=== PATIENT | male | born 1945 | race African-American/Black ===

== ENCOUNTER 2016-07-10 12:17 | Emergency (ER) | payer MEDICARE, OTHER ==
[~2016-07-10] VITALS: Ht 180.3 cm; Wt 95.0 kg
[~2016-07-10 12:17] MED LIST: AMLO5TAB4 PO; PREG50CA PO; TAMS0.4C31 PO; iron PO
[2016-07-10 12:19] VITALS: BP 144/83
[2016-07-10] MEDS ORDERED: NAPROXEN 500MG TABLET PO ONE (14:30)
== END 2016-07-10 15:20 | disposition home or self-care (01) ==
LOC: ER 13:01
DX: G89.29 Other chronic pain (principal); M25.511 Pain in right shoulder; I10 Essential (primary) hypertension; Z86.73 Personal history of transient ischemic attack (TIA), and cerebral infarction without residual deficits; Z88.0 Allergy status to penicillin
CPT/HCPCS: 99283

== ENCOUNTER 2016-09-06 18:47 | Emergency (ER) | payer MEDICARE, OTHER ==
[~2016-09-06] VITALS: Ht 172.7 cm; Wt 73.0 kg
[2016-09-06] MEDS ORDERED: SODIUM CHLORIDE 0.9% 1,000 ML IV ONE (19:40)
[2016-09-06 20:12] LABS: BASOPHILS % 1.1 % (0.0-2.0); EOSINOPHILS % 3.4 % (0.0-5.0); HEMATOCRIT. 37.2 % (42.0-52.0); HEMOGLOBIN. 12.2 g/dL (14.0-18.0); LYMPHOCYTES % 17.2 % (20.0-50.0); MEAN CORPUSCULAR HEMOGLOBIN 25.9 pg (28.0-32.0); MEAN CORPUSCULAR VOLUME 78.8 fL (80.0-94.0); MEAN PLATELET VOLUME 8.4 fl (7.4-10.4); MONOCYTES % 8.7 % (2.0-8.0); NEUTROPHILS % 69.6 % (40.0-76.0); PLATELET 193 x1000/uL (130-400); RED BLOOD CELL COUNT 4.72 mill/uL (4.7-6.1); RED CELL DISTRIBUTION WIDTH 16.4 % (11.6-14.6)
[2016-09-06 20:20] LABS: AMMONIA 15 uMol/L (<32)
[2016-09-06 20:26] LABS: CARBON DIOXIDE 24 mEq/L (21-32); CHLORIDE 102 mEq/L (98-107); ETHANOL BLOOD < 10 mg/dL; TROPONIN I < 0.02 ng/mL (0.00-0.04)
[2016-09-06 20:43] LABS: CLARITY URINE CLEAR (CLEAR); COLOR URINE YELLOW (YELLOW); GLUCOSE URINE NEGATIVE (NEGATIVE); KETONES URINE NEGATIVE (NEGATIVE); LEUKOCYTE ESTERASE URINE NEGATIVE (NEGATIVE); NITRITE URINE NEGATIVE (NEGATIVE); OCCULT BLOOD URINE TRACE (NEGATIVE); PH URINE 5.5 (4.5-8.0); PROTEIN URINE 1+ (NEGATIVE); UROBILINOGEN URINE 0.2 E.U./dL (0.2-1.0)
[2016-09-06 20:53] LABS: *AMPHETAMINES SCREEN URINE NEGATIVE (NEGATIVE); *BARBITURATES SCREEN URINE NEGATIVE (NEGATIVE); *BENZODIAZEPINES SCREEN URINE NEGATIVE (NEGATIVE); *COCAINE SCREEN URINE NEGATIVE (NEGATIVE); CANNABINOID URINE SCREEN NEGATIVE (NEGATIVE); METHADONE URINE SCREEN NEGATIVE (NEGATIVE); OPIATES URINE SCREEN NEGATIVE (NEGATIVE); PHENCYCLIDINE URINE SCREEN PRESUMTIVE POSITIVE (NEGATIVE)
[2016-09-06 22:10] VITALS: BP 156/85
== END 2016-09-06 23:00 | disposition home or self-care (01) ==
LOC: ER 19:05
DX: R55 Syncope and collapse (principal); F19.10 Other psychoactive substance abuse, uncomplicated; F17.200 Nicotine dependence, unspecified, uncomplicated; I10 Essential (primary) hypertension; Z86.73 Personal history of transient ischemic attack (TIA), and cerebral infarction without residual deficits; Z88.0 Allergy status to penicillin
CPT/HCPCS: 36415; 70450; 71010; 72125; 80053; 80305; 81001; 82140; 82962; 84484; 85025; 93005; 96360; 99285; 99406; G0482; J7030

== ENCOUNTER 2016-09-12 18:27 | Emergency (ER) | payer MEDICARE, OTHER ==
[~2016-09-12] VITALS: Ht 180.3 cm; Wt 81.0 kg
[2016-09-12 18:30] VITALS: BP 160/89
== END 2016-09-12 22:50 | disposition left against medical advice (07) ==
LOC: ER 19:04
DX: Z53.21 Procedure and treatment not carried out due to patient leaving prior to being seen by health care provider (principal)

== ENCOUNTER 2016-09-28 22:48 | Emergency (ER) | payer MEDICARE, OTHER ==
[~2016-09-28] VITALS: Ht 185.4 cm; Wt 90.0 kg
[2016-09-29 00:18] LABS: EOSINOPHILS % 4.2 % (0.0-5.0); HEMATOCRIT. 38.2 % (42.0-52.0); HEMOGLOBIN. 12.2 g/dL (14.0-18.0); LYMPHOCYTES % 29.7 % (20.0-50.0); MEAN CORPUSCULAR VOLUME 81.5 fL (80.0-94.0); MEAN PLATELET VOLUME 7.6 fl (7.4-10.4); MONOCYTES % 7.8 % (2.0-8.0); NEUTROPHILS % 57.3 % (40.0-76.0); PLATELET 248 x1000/uL (130-400); RED BLOOD CELL COUNT 4.68 mill/uL (4.7-6.1); RED CELL DISTRIBUTION WIDTH 15.9 % (11.6-14.6)
[2016-09-29 00:20] LABS: CLARITY URINE CLEAR (CLEAR); COLOR URINE YELLOW (YELLOW); GLUCOSE URINE NEGATIVE (NEGATIVE); KETONES URINE NEGATIVE (NEGATIVE); LEUKOCYTE ESTERASE URINE NEGATIVE (NEGATIVE); NITRITE URINE NEGATIVE (NEGATIVE); OCCULT BLOOD URINE NEGATIVE (NEGATIVE); PH URINE 5.5 (4.5-8.0); PROTEIN URINE TRACE (NEGATIVE); SPECIFIC GRAVITY URINE 1.026 (1.005-1.030)
[2016-09-29 00:32] LABS: CARBON DIOXIDE 28 mEq/L (21-32); CHLORIDE 108 mEq/L (98-107); CREATINE KINASE 161 IU/L (39-308); ETHANOL BLOOD < 10 mg/dL
[2016-09-29 00:33] LABS: PROTHROMBIN TIME 10.7 sec
[2016-09-29 00:34] LABS: *AMPHETAMINES SCREEN URINE NEGATIVE (NEGATIVE); *BARBITURATES SCREEN URINE NEGATIVE (NEGATIVE); *BENZODIAZEPINES SCREEN URINE NEGATIVE (NEGATIVE); *COCAINE SCREEN URINE NEGATIVE (NEGATIVE); CANNABINOID URINE SCREEN NEGATIVE (NEGATIVE); METHADONE URINE SCREEN NEGATIVE (NEGATIVE); OPIATES URINE SCREEN NEGATIVE (NEGATIVE); PHENCYCLIDINE URINE SCREEN PRESUMTIVE POSITIVE (NEGATIVE)
[2016-09-29 11:45] VITALS: BP 124/89
== END 2016-09-29 12:13 | disposition home or self-care (01) ==
LOC: ER 22:57
DX: R42 Dizziness and giddiness (principal); R53.1 Weakness; F16.10 Hallucinogen abuse, uncomplicated; I11.9 Hypertensive heart disease without heart failure; F17.200 Nicotine dependence, unspecified, uncomplicated; Z88.0 Allergy status to penicillin; Z86.73 Personal history of transient ischemic attack (TIA), and cerebral infarction without residual deficits
CPT/HCPCS: 36415; 70450; 80053; 80305; 81001; 82550; 82962; 85025; 85610; 99285; G0482

== ENCOUNTER 2016-10-01 10:13 | Emergency (ER) | payer MEDICARE, OTHER ==
[~2016-10-01] VITALS: Ht 185.4 cm; Wt 81.0 kg
[2016-10-01 11:52] LABS: BASOPHILS % 0.9 % (0.0-2.0); EOSINOPHILS % 4.4 % (0.0-5.0); HEMATOCRIT. 38.3 % (42.0-52.0); HEMOGLOBIN. 12.4 g/dL (14.0-18.0); LYMPHOCYTES % 28.2 % (20.0-50.0); MEAN CORPUSCULAR HEMOGLOBIN 26.1 pg (28.0-32.0); MEAN CORPUSCULAR VOLUME 80.9 fL (80.0-94.0); MEAN PLATELET VOLUME 8.1 fl (7.4-10.4); MONOCYTES % 8.6 % (2.0-8.0); NEUTROPHILS % 57.9 % (40.0-76.0); PLATELET 254 x1000/uL (130-400); RED BLOOD CELL COUNT 4.74 mill/uL (4.7-6.1); RED CELL DISTRIBUTION WIDTH 15.8 % (11.6-14.6)
[2016-10-01 12:05] LABS: CARBON DIOXIDE 27 mEq/L (21-32); CHLORIDE 106 mEq/L (98-107); ETHANOL BLOOD < 10 mg/dL
[2016-10-01 12:13] LABS: *AMPHETAMINES SCREEN URINE NEGATIVE (NEGATIVE); *BARBITURATES SCREEN URINE NEGATIVE (NEGATIVE); *BENZODIAZEPINES SCREEN URINE NEGATIVE (NEGATIVE); *COCAINE SCREEN URINE NEGATIVE (NEGATIVE); CANNABINOID URINE SCREEN NEGATIVE (NEGATIVE); METHADONE URINE SCREEN NEGATIVE (NEGATIVE); OPIATES URINE SCREEN NEGATIVE (NEGATIVE); PHENCYCLIDINE URINE SCREEN PRESUMTIVE POSITIVE (NEGATIVE)
[2016-10-01 15:27] VITALS: BP 128/74
== END 2016-10-01 15:57 | disposition home or self-care (01) ==
LOC: ER 10:14
DX: F16.10 Hallucinogen abuse, uncomplicated (principal); I12.9 Hypertensive chronic kidney disease with stage 1 through stage 4 chronic kidney disease, or unspecified chronic kidney disease; N18.9 Chronic kidney disease, unspecified; D63.1 Anemia in chronic kidney disease; I25.10 Atherosclerotic heart disease of native coronary artery without angina pectoris; F17.210 Nicotine dependence, cigarettes, uncomplicated; Z88.0 Allergy status to penicillin; Z86.73 Personal history of transient ischemic attack (TIA), and cerebral infarction without residual deficits
CPT/HCPCS: 36415; 80048; 80305; 85025; 99284; G0482

== ENCOUNTER 2016-10-10 12:34 | Emergency (ER) | payer MEDICARE, OTHER ==
[~2016-10-10] VITALS: Ht 175.3 cm; Wt 75.0 kg
[2016-10-10] MEDS ORDERED: IBUPROFEN 600MG TABLET PO ONE (14:15)
[2016-10-10] MEDS ORDERED: TETANUS, DIPHTHERIA, PERTUSSIS VAC/PF 0.5ML (>7YR OLD) IM ONE (14:15)
[2016-10-10 19:40] VITALS: BP 150/90
== END 2016-10-10 20:38 | disposition home or self-care (01) ==
LOC: ER 13:07
DX: S09.8XXA Other specified injuries of head, initial encounter (principal); T50.901A Poisoning by unspecified drugs, medicaments and biological substances, accidental (unintentional), initial encounter; F19.10 Other psychoactive substance abuse, uncomplicated; E11.9 Type 2 diabetes mellitus without complications; I10 Essential (primary) hypertension; W18.39XA Other fall on same level, initial encounter; Y93.89 Activity, other specified; Y92.89 Other specified places as the place of occurrence of the external cause; Y99.8 Other external cause status; Z88.0 Allergy status to penicillin
CPT/HCPCS: 70450; 90471; 90715; 99284

== ENCOUNTER 2016-10-20 09:23 | Emergency (ER) | payer MEDICARE, OTHER ==
[~2016-10-20] VITALS: Ht 180.3 cm; Wt 90.0 kg
[2016-10-20] MEDS ORDERED: ACETAMINOPHEN 325MG TABLET PO ONE (10:00)
[2016-10-20 10:14] LABS: EOSINOPHILS % 7.9 % (0.0-5.0); HEMATOCRIT. 36.3 % (42.0-52.0); HEMOGLOBIN. 11.7 g/dL (14.0-18.0); LYMPHOCYTES % 27.8 % (20.0-50.0); MEAN CORPUSCULAR HEMOGLOBIN 26.2 pg (28.0-32.0); MEAN CORPUSCULAR VOLUME 81.5 fL (80.0-94.0); NEUTROPHILS % 55.3 % (40.0-76.0); PLATELET 207 x1000/uL (130-400); RED BLOOD CELL COUNT 4.45 mill/uL (4.7-6.1); RED CELL DISTRIBUTION WIDTH 15.3 % (11.6-14.6)
[2016-10-20 10:22] LABS: CLARITY URINE CLEAR (CLEAR); COLOR URINE YELLOW (YELLOW); GLUCOSE URINE NEGATIVE (NEGATIVE); KETONES URINE NEGATIVE (NEGATIVE); LEUKOCYTE ESTERASE URINE 1+ (NEGATIVE); NITRITE URINE NEGATIVE (NEGATIVE); OCCULT BLOOD URINE NEGATIVE (NEGATIVE); PROTEIN URINE NEGATIVE (NEGATIVE); SPECIFIC GRAVITY URINE 1.014 (1.005-1.030); UROBILINOGEN URINE 0.2 E.U./dL (0.2-1.0)
[2016-10-20 10:23] LABS: CARBON DIOXIDE 26 mEq/L (21-32); CHLORIDE 107 mEq/L (98-107)
[2016-10-20 10:44] LABS: *AMPHETAMINES SCREEN URINE NEGATIVE (NEGATIVE); *BARBITURATES SCREEN URINE NEGATIVE (NEGATIVE); *BENZODIAZEPINES SCREEN URINE NEGATIVE (NEGATIVE); *COCAINE SCREEN URINE NEGATIVE (NEGATIVE); CANNABINOID URINE SCREEN NEGATIVE (NEGATIVE); METHADONE URINE SCREEN NEGATIVE (NEGATIVE); OPIATES URINE SCREEN NEGATIVE (NEGATIVE); PHENCYCLIDINE URINE SCREEN PRESUMTIVE POSITIVE (NEGATIVE)
[2016-10-20 11:06] VITALS: BP 137/83
== END 2016-10-20 11:17 | disposition home or self-care (01) ==
LOC: ER 09:33
DX: R51 Headache (principal); F19.10 Other psychoactive substance abuse, uncomplicated; I10 Essential (primary) hypertension; Z86.73 Personal history of transient ischemic attack (TIA), and cerebral infarction without residual deficits; Z88.0 Allergy status to penicillin; W01.0XXA Fall on same level from slipping, tripping and stumbling without subsequent striking against object, initial encounter; Y93.89 Activity, other specified; Y99.8 Other external cause status; Y92.89 Other specified places as the place of occurrence of the external cause
CPT/HCPCS: 36415; 80048; 80305; 81001; 85025; 93005; 99285

== ENCOUNTER 2016-10-22 02:42 | Emergency (ER) | payer MEDICARE, OTHER ==
[~2016-10-22] VITALS: Ht 190.5 cm; Wt 75.0 kg
[2016-10-22 02:44] VITALS: BP 152/101
== END 2016-10-22 04:25 | disposition left against medical advice (07) ==
LOC: ER 02:42
DX: M79.601 Pain in right arm (principal); Z53.21 Procedure and treatment not carried out due to patient leaving prior to being seen by health care provider

== ENCOUNTER 2016-10-26 14:04 | Emergency (ER) | payer MEDICARE, OTHER ==
[~2016-10-26] VITALS: Ht 172.7 cm; Wt 80.0 kg
[2016-10-26] MEDS ORDERED: KETOROLAC 30MG/ML VIAL IV ONE (14:30)
[2016-10-26 15:01] LABS: EOSINOPHILS % 4.2 % (0.0-5.0); HEMOGLOBIN. 11.3 g/dL (14.0-18.0); LYMPHOCYTES % 24.7 % (20.0-50.0); MEAN CORPUSCULAR HEMOGLOBIN 26.6 pg (28.0-32.0); MEAN CORPUSCULAR VOLUME 82.3 fL (80.0-94.0); MEAN PLATELET VOLUME 7.9 fl (7.4-10.4); MONOCYTES % 10.6 % (2.0-8.0); NEUTROPHILS % 59.5 % (40.0-76.0); PLATELET 235 x1000/uL (130-400); RED BLOOD CELL COUNT 4.25 mill/uL (4.7-6.1); RED CELL DISTRIBUTION WIDTH 15.4 % (11.6-14.6)
[2016-10-26 15:07] LABS: INR 1.1; PROTHROMBIN TIME 11.1 sec
[2016-10-26 15:13] LABS: CARBON DIOXIDE 28 mEq/L (21-32); CHLORIDE 112 mEq/L (98-107); ETHANOL BLOOD < 10 mg/dL
[2016-10-26 16:40] VITALS: BP 152/102
== END 2016-10-26 16:53 | disposition home or self-care (01) ==
LOC: ER 14:38
DX: R53.1 Weakness (principal); R42 Dizziness and giddiness; I10 Essential (primary) hypertension; F19.10 Other psychoactive substance abuse, uncomplicated; Z88.0 Allergy status to penicillin
CPT/HCPCS: 36415; 70450; 71010; 73030; 80053; 85025; 85610; 93005; 96374; 99285; G0482; J1885

== ENCOUNTER 2016-11-12 10:37 | Emergency (ER) | payer MEDICARE, OTHER ==
[~2016-11-12] VITALS: Ht 175.3 cm; Wt 78.0 kg
[2016-11-12] MEDS ORDERED: SODIUM CHLORIDE 0.9% 1,000 ML IV ONE (14:29)
[2016-11-12] MEDS ORDERED: LEVOFLOXACIN 750MG PREMIX 150 ML IV ONE (14:45)
[2016-11-12 15:12] LABS: BASOPHILS % 1.1 % (0.0-2.0); EOSINOPHILS % 5.8 % (0.0-5.0); HEMATOCRIT. 38.6 % (42.0-52.0); HEMOGLOBIN. 12.3 g/dL (14.0-18.0); LYMPHOCYTES % 33.7 % (20.0-50.0); MEAN CORPUSCULAR HEMOGLOBIN 26.3 pg (28.0-32.0); MEAN CORPUSCULAR VOLUME 82.4 fL (80.0-94.0); MEAN PLATELET VOLUME 8.9 fl (7.4-10.4); MONOCYTES % 8.1 % (2.0-8.0); NEUTROPHILS % 51.3 % (40.0-76.0); PLATELET 202 x1000/uL (130-400); RED BLOOD CELL COUNT 4.69 mill/uL (4.7-6.1); RED CELL DISTRIBUTION WIDTH 15.3 % (11.6-14.6)
[2016-11-12 15:15] LABS: INR 1.1; PROTHROMBIN TIME 10.9 sec
[2016-11-12 15:24] LABS: CARBON DIOXIDE 24 mEq/L (21-32); CHLORIDE 109 mEq/L (98-107); CREATINE KINASE MB FRACTION 1.6 ng/mL (0.5-3.6); TROPONIN I < 0.02 ng/mL (0.00-0.04)
[2016-11-12 17:39] VITALS: BP 117/81
[2016-11-12 17:48] LABS: *AMPHETAMINES SCREEN URINE NEGATIVE (NEGATIVE); *BARBITURATES SCREEN URINE NEGATIVE (NEGATIVE); *BENZODIAZEPINES SCREEN URINE NEGATIVE (NEGATIVE); *COCAINE SCREEN URINE NEGATIVE (NEGATIVE); CANNABINOID URINE SCREEN PRESUMTIVE POSITIVE (NEGATIVE); METHADONE URINE SCREEN NEGATIVE (NEGATIVE); OPIATES URINE SCREEN NEGATIVE (NEGATIVE); PHENCYCLIDINE URINE SCREEN PRESUMTIVE POSITIVE (NEGATIVE)
== END 2016-11-12 18:15 | disposition home or self-care (01) ==
LOC: ER 11:14
DX: R53.1 Weakness (principal); R55 Syncope and collapse; R26.9 Unspecified abnormalities of gait and mobility; R07.89 Other chest pain; I10 Essential (primary) hypertension; R00.1 Bradycardia, unspecified; F17.210 Nicotine dependence, cigarettes, uncomplicated; F16.10 Hallucinogen abuse, uncomplicated; F12.10 Cannabis abuse, uncomplicated; Z91.81 History of falling; Z98.890 Other specified postprocedural states; Z86.73 Personal history of transient ischemic attack (TIA), and cerebral infarction without residual deficits; Z88.0 Allergy status to penicillin
CPT/HCPCS: 36415; 70450; 71010; 80053; 80305; 82553; 83880; 84484; 85025; 85610; 87040; 93005; 96365; 96366; 99285; G0482; J1956; J7030

== ENCOUNTER 2016-12-01 10:25 | Emergency (ER) | payer MEDICARE, OTHER ==
[~2016-12-01] VITALS: Ht 177.8 cm; Wt 75.0 kg
[2016-12-01] MEDS ORDERED: SODIUM CHLORIDE 0.9% 1,000 ML IV ONE (12:07)
[2016-12-01 12:33] LABS: CLARITY URINE CLEAR (CLEAR); COLOR URINE YELLOW (YELLOW); GLUCOSE URINE NEGATIVE (NEGATIVE); KETONES URINE TRACE (NEGATIVE); LEUKOCYTE ESTERASE URINE NEGATIVE (NEGATIVE); NITRITE URINE NEGATIVE (NEGATIVE); OCCULT BLOOD URINE NEGATIVE (NEGATIVE); PH URINE 5.5 (4.5-8.0); PROTEIN URINE TRACE (NEGATIVE); SPECIFIC GRAVITY URINE 1.027 (1.005-1.030)
[2016-12-01 12:51] LABS: BASOPHILS % 0.9 % (0.0-2.0); EOSINOPHILS % 5.2 % (0.0-5.0); HEMATOCRIT. 38.5 % (42.0-52.0); HEMOGLOBIN. 12.2 g/dL (14.0-18.0); LYMPHOCYTES % 29.6 % (20.0-50.0); MEAN CORPUSCULAR HEMOGLOBIN 26.5 pg (28.0-32.0); MEAN CORPUSCULAR VOLUME 83.9 fL (80.0-94.0); MEAN PLATELET VOLUME 8.4 fl (7.4-10.4); MONOCYTES % 8.7 % (2.0-8.0); NEUTROPHILS % 55.6 % (40.0-76.0); PLATELET 226 x1000/uL (130-400); RED BLOOD CELL COUNT 4.59 mill/uL (4.7-6.1)
[2016-12-01 13:05] LABS: PROTHROMBIN TIME 10.8 sec (9.4-11.6)
[2016-12-01 13:09] LABS: CARBON DIOXIDE 25 mEq/L (21-32); CHLORIDE 108 mEq/L (98-107); TROPONIN I < 0.02 ng/mL (0.00-0.04)
[2016-12-01 13:32] VITALS: BP 144/78
== END 2016-12-01 14:16 | disposition home or self-care (01) ==
LOC: ER 10:50
DX: R53.1 Weakness (principal); F20.9 Schizophrenia, unspecified; I10 Essential (primary) hypertension; R42 Dizziness and giddiness; Z86.73 Personal history of transient ischemic attack (TIA), and cerebral infarction without residual deficits; Z88.0 Allergy status to penicillin; W10.9XXA Fall (on) (from) unspecified stairs and steps, initial encounter; Y93.9 Activity, unspecified; Y99.8 Other external cause status; Y92.89 Other specified places as the place of occurrence of the external cause
CPT/HCPCS: 36415; 80053; 81001; 83605; 84484; 85025; 85610; 96360; 99284; J7030

== ENCOUNTER 2017-05-09 21:34 | Emergency (ER) | payer MEDICARE, OTHER ==
[~2017-05-09] VITALS: Ht 188 cm; Wt 91.0 kg
[2017-05-10] MEDS ORDERED: IPRATROPIUM/ALBUTEROL 0.5-3(2.5)MG/3ML NEB HHN ONE (05:45)
[2017-05-10 06:40] LABS: BASOPHILS % 0.7 % (0.0-2.0); HEMATOCRIT. 39.5 % (42.0-52.0); HEMOGLOBIN. 12.4 g/dL (14.0-18.0); LYMPHOCYTES % 24.4 % (20.0-50.0); MEAN CORPUSCULAR HEMOGLOBIN 23.6 pg (28.0-32.0); MEAN CORPUSCULAR VOLUME 74.8 fL (80.0-94.0); MEAN PLATELET VOLUME 8.8 fl (7.4-10.4); MONOCYTES % 8.7 % (2.0-8.0); NEUTROPHILS % 62.2 % (40.0-76.0); PLATELET 226 x1000/uL (130-400); RED BLOOD CELL COUNT 5.28 mill/uL (4.7-6.1); RED CELL DISTRIBUTION WIDTH 20.4 % (11.6-14.6)
[2017-05-10 06:46] LABS: PROTHROMBIN TIME 10.6 sec (9.4-11.6)
[2017-05-10 06:54] LABS: CARBON DIOXIDE 22 mEq/L (21-32); CHLORIDE 108 mEq/L (98-107)
[2017-05-10] MEDS ORDERED: KETOROLAC 30MG/ML VIAL IM ONE (09:00)
[2017-05-10] MEDS ORDERED: ONDANSETRON 4MG ODT PO ONE (09:00)
[2017-05-10 11:52] VITALS: BP 134/72
== END 2017-05-10 12:07 | disposition home or self-care (01) ==
LOC: ER 22:03
DX: R05 Cough (principal); R09.81 Nasal congestion; M25.511 Pain in right shoulder; R79.1 Abnormal coagulation profile
CPT/HCPCS: 36415; 71045; 73030; 80053; 85025; 85610; 96372; 99285; J1885; Q0162

== ENCOUNTER 2018-03-09 20:46 | Inpatient (IN) | payer MEDICARE, OTHER ==
[~2018-03-09] VITALS: Ht 185.4 cm; Wt 79.8 kg
[2018-03-09] MEDS ORDERED: LABETALOL 5MG/ML SYR 20 MG/4 ML SYRINGE IV ONE (21:45)
[2018-03-09 21:55] LABS: BASOPHILS % 0.3 % (0.0-2.0); HEMATOCRIT. 43.7 % (42.0-52.0); HEMOGLOBIN. 14.3 g/dL (14.0-18.0); LYMPHOCYTES % 7.6 % (20.0-50.0); MEAN CORPUSCULAR VOLUME 82.7 fL (80.0-94.0); MEAN PLATELET VOLUME 8.2 fl (7.4-10.4); MONOCYTES % 4.3 % (2.0-8.0); NEUTROPHILS % 87.8 % (40.0-76.0); PLATELET 213 x1000/uL (130-400); RED BLOOD CELL COUNT 5.29 mill/uL (4.7-6.1)
[2018-03-09 22:01] LABS: CHLORIDE 101 mEq/L (98-107)
[2018-03-09 22:04] LABS: PROTHROMBIN TIME 10.5 sec (9.1-11.1)
[2018-03-09 22:06] LABS: ETHANOL BLOOD < 10 mg/dL
[2018-03-09] MEDS ORDERED: MAGNESIUM/ALUMINUM HYDROXIDE/SIMETHICONE 30ML UDC PO STA (23:36)
[2018-03-10] MEDS ORDERED: SODIUM CHLORIDE 0.9% 1,000 ML IV NR (00:23)
[2018-03-10 00:27] LABS: CLARITY URINE CLEAR (CLEAR); COLOR URINE YELLOW (YELLOW); KETONES URINE 1+ (NEGATIVE); LEUKOCYTE ESTERASE URINE NEGATIVE (NEGATIVE); NITRITE URINE NEGATIVE (NEGATIVE); OCCULT BLOOD URINE 2+ (NEGATIVE); PROTEIN URINE 3+ (NEGATIVE); UROBILINOGEN URINE 0.2 E.U./dL (0.2-1.0)
[2018-03-10] MEDS ORDERED: CEFTRIAXONE 1 G PREMIX 50 ML IV NR (00:30)
[2018-03-10] MEDS ORDERED: SODIUM CHLORIDE 0.45% 1,000 ML IV SCH (00:34)
[2018-03-10] MEDS ORDERED: ACETAMINOPHEN 325MG TABLET PO PRN (00:45)
[2018-03-10] MEDS ORDERED: CLONIDINE 0.1MG TABLET PO PRN (00:45)
[2018-03-10] MEDS ORDERED: IPRATROPIUM/ALBUTEROL 0.5-3(2.5)MG/3ML NEB INH PRN (00:45)
[2018-03-10] MEDS ORDERED: DIPHENHYDRAMINE 50MG/ML VIAL IV PRN (00:45)
[2018-03-10] MEDS ORDERED: NA PHOS,M-B/NA PHOS,DI-BA ENEMA 118ML PR PRN (00:45)
[2018-03-10] MEDS ORDERED: HYDROCODONE/ACETAMINOPHEN 5/325MG TABLET PO PRN (00:45)
[2018-03-10] MEDS ORDERED: DOCUSATE SODIUM 100MG CAPSULE PO PRN (00:45)
[2018-03-10] MEDS ORDERED: MAGNESIUM/ALUMINUM HYDROXIDE/SIMETHICONE 30ML UDC PO PRN (00:45)
[2018-03-10] MEDS ORDERED: GUAIFENESIN 200MG/10ML SUGAR FREE UDC PO PRN (00:45)
[2018-03-10] MEDS ORDERED: ONDANSETRON HCL 4MG/2ML INJ IV PRN (00:45)
[2018-03-10 00:51] LABS: *AMPHETAMINES SCREEN URINE NEGATIVE (NEGATIVE); *BARBITURATES SCREEN URINE NEGATIVE (NEGATIVE); *BENZODIAZEPINES SCREEN URINE NEGATIVE (NEGATIVE); *COCAINE SCREEN URINE NEGATIVE (NEGATIVE); METHADONE URINE SCREEN NEGATIVE (NEGATIVE); OPIATES URINE SCREEN NEGATIVE (NEGATIVE)
[2018-03-10 00:52] LABS: CANNABINOID URINE SCREEN NEGATIVE (NEGATIVE); PHENCYCLIDINE URINE SCREEN PRESUMTIVE POSITIVE (NEGATIVE)
[2018-03-10 01:46] LABS: CHLORIDE 102 mEq/L (98-107)
[2018-03-10] MEDS ORDERED: AZITHROMYCIN 500 MG in DEXT 5% WATER 250 ML IV NR (04:00)
[2018-03-10] MEDS ORDERED: SODIUM POLYSTYRENE SULFONATE 15 G/60 ML BOT PO SCH (13:15)
[2018-03-10 17:15] VITALS: BP 148/95
[2018-03-10] MEDS ORDERED: LORAZEPAM 0.5MG TABLET PO PRN (17:45)
[2018-03-10] MEDS ORDERED: SODIUM CHLORIDE 0.9% 1,000 ML IV SCH (17:45)
[2018-03-10] MEDS: AMLODIPINE 10MG TABLET PO SCH (18:14)
[2018-03-10 20:00] VITALS: BP 141/86
[2018-03-10 20:06] LABS: CREATINE KINASE MB FRACTION 5.7 ng/mL (0.5-3.6)
[2018-03-10] MEDS: METOPROLOL TARTRATE 25MG TABLET PO SCH (21:44)
[2018-03-10] MEDS: ENOXAPARIN 30MG/0.3ML SYR SUBCUT SCH (21:45)
[2018-03-11] VITALS: BP 139/73
[2018-03-11 00:35] LABS: CREATINE KINASE MB FRACTION 6.2 ng/mL (0.5-3.6)
[2018-03-11 06:41] VITALS: BP 130/75
[2018-03-11 08:00] VITALS: BP 151/75
[2018-03-11] MEDS: ASPIRIN 81MG EC TABLET PO SCH (08:18)
[2018-03-11] MEDS: ENOXAPARIN 30MG/0.3ML SYR SUBCUT SCH ×2 (08:18→21:00)
[2018-03-11] MEDS: AMLODIPINE 10MG TABLET PO SCH (08:19)
[2018-03-11] MEDS: METOPROLOL TARTRATE 25MG TABLET PO SCH ×2 (08:19→21:00)
[2018-03-11] MEDS: MORPHINE SULFATE 10MG/5ML ORAL SOLN UDC PO PRN ×2 (08:21→17:05)
[2018-03-11] MEDS ORDERED: REGADENOSON 0.4 MG/5 ML IV NR (10:30)
[2018-03-11 11:13] LABS: BASOPHILS % 0.5 % (0.0-2.0); EOSINOPHILS % 3.9 % (0.0-5.0); HEMOGLOBIN. 14.2 g/dL (14.0-18.0); LYMPHOCYTES % 28.1 % (20.0-50.0); MEAN CORPUSCULAR HEMOGLOBIN 26.9 pg (28.0-32.0); MEAN CORPUSCULAR VOLUME 83.5 fL (80.0-94.0); MONOCYTES % 9.8 % (2.0-8.0); NEUTROPHILS % 57.7 % (40.0-76.0); PLATELET 196 x1000/uL (130-400); RED BLOOD CELL COUNT 5.27 mill/uL (4.7-6.1); RED CELL DISTRIBUTION WIDTH 16.3 % (11.6-14.6)
[2018-03-11 11:36] LABS: CHLORIDE 105 mEq/L (98-107)
[2018-03-11 11:44] LABS: LDL CHOLESTEROL 113 mg/dL (5-100)
[2018-03-11 11:45] LABS: HDL CHOLESTEROL 54 mg/dL (40-59); T4 FREE 1.03 ng/dL (0.76-1.46)
[2018-03-11 11:50] LABS: CREATINE KINASE 730 IU/L (39-308); CREATINE KINASE MB FRACTION 5.5 ng/mL (0.5-3.6)
[2018-03-11 12:00] VITALS: BP 126/65
[2018-03-11] MEDS ORDERED: SODIUM CHLORIDE 0.45% 1,000 ML IV SCH (12:30)
[2018-03-11] MEDS ORDERED: REGADENOSON 0.4 MG/5 ML IV ONE (13:10)
[2018-03-11 16:30] VITALS: BP 110/89
[2018-03-11 20:00] VITALS: BP 158/83
[2018-03-12] VITALS: BP 116/63
[2018-03-12 04:00] VITALS: BP 142/84
[2018-03-12 07:59] VITALS: BP 141/85
[2018-03-12] MEDS: AMLODIPINE 10MG TABLET PO SCH (08:20)
[2018-03-12] MEDS: ASPIRIN 81MG EC TABLET PO SCH (08:21)
[2018-03-12] MEDS: METOPROLOL TARTRATE 25MG TABLET PO SCH (08:21)
[2018-03-12] MEDS: ENOXAPARIN 30MG/0.3ML SYR SUBCUT SCH (08:21)
[2018-03-12] MEDS: MORPHINE SULFATE 10MG/5ML ORAL SOLN UDC PO PRN (08:22)
[2018-03-12 10:11] LABS: BASOPHILS % 0.7 % (0.0-2.0); EOSINOPHILS % 4.1 % (0.0-5.0); HEMATOCRIT. 41.7 % (42.0-52.0); HEMOGLOBIN. 13.5 g/dL (14.0-18.0); LYMPHOCYTES % 14.7 % (20.0-50.0); MEAN CORPUSCULAR HEMOGLOBIN 26.8 pg (28.0-32.0); MEAN CORPUSCULAR VOLUME 82.9 fL (80.0-94.0); MEAN PLATELET VOLUME 8.8 fl (7.4-10.4); MONOCYTES % 8.8 % (2.0-8.0); NEUTROPHILS % 71.7 % (40.0-76.0); PLATELET 229 x1000/uL (130-400); RED BLOOD CELL COUNT 5.04 mill/uL (4.7-6.1)
[2018-03-12 10:44] LABS: CHLORIDE 106 mEq/L (98-107)
[2018-03-12 10:55] LABS: CREATINE KINASE 388 IU/L (39-308)
[2018-03-12 11:04] LABS: CREATINE KINASE MB FRACTION 2.7 ng/mL (0.5-3.6)
[2018-03-12 11:47] VITALS: BP 141/85
[2018-03-12 12:00] VITALS: BP 125/81
== END 2018-03-12 13:00 | disposition home or self-care (01) | DRG 682 ==
LOC: ER 21:04 → 8WST 03-10 00:22 → EDBEDREQDT 03-10 00:42 → EDBEDREQ 03-10 00:42 → EDBEDREQTM 03-10 00:42 → EDBEDREQ 03-10 00:47 → ENRESERV 03-10 15:27 → CANRESERV 03-10 15:27 → ENRESERV 03-10 15:55
PROVIDERS: ADMIT Internal Medicine; ATTEND Internal Medicine
DX: N17.9 Acute kidney failure, unspecified (principal); G92 Toxic encephalopathy; M62.82 Rhabdomyolysis; E87.2 Acidosis; E78.5 Hyperlipidemia, unspecified; I10 Essential (primary) hypertension; E87.5 Hyperkalemia; R55 Syncope and collapse; N28.1 Cyst of kidney, acquired; R07.9 Chest pain, unspecified; R74.8 Abnormal levels of other serum enzymes; D72.829 Elevated white blood cell count, unspecified; F16.10 Hallucinogen abuse, uncomplicated; N32.89 Other specified disorders of bladder; F17.210 Nicotine dependence, cigarettes, uncomplicated; I25.10 Atherosclerotic heart disease of native coronary artery without angina pectoris; N40.0 Benign prostatic hyperplasia without lower urinary tract symptoms; Z87.11 Personal history of peptic ulcer disease; Z86.718 Personal history of other venous thrombosis and embolism; Z86.73 Personal history of transient ischemic attack (TIA), and cerebral infarction without residual deficits; Z91.14 Patient's other noncompliance with medication regimen; Z88.0 Allergy status to penicillin; Z79.899 Other long term (current) drug therapy; Z91.81 History of falling
CPT/HCPCS: 36415; 71045; 76770; 78452; 80048; 80061; 80305; 82550; 82553; 83036; 83605; 83880; 84439; 84443; 84484; 85379; 93005; 93017; 93306; 93880; 93970; 96365; 96375; 99285; A9500; C1893; G0482; J0456; J0696; J1650; J2785; J3490; J7060

== ENCOUNTER 2018-06-09 19:27 | Inpatient (IN) | payer MEDICARE, OTHER ==
[~2018-06-09] VITALS: Ht 185.4 cm; Wt 77.6 kg
[2018-06-09] MEDS ORDERED: HYDRALAZINE 20MG/ML VIAL IV ONE (20:00)
[2018-06-09 20:34] LABS: CLARITY URINE CLEAR (CLEAR); COLOR URINE YELLOW (YELLOW); KETONES URINE NEGATIVE (NEGATIVE); LEUKOCYTE ESTERASE URINE NEGATIVE (NEGATIVE); NITRITE URINE NEGATIVE (NEGATIVE); OCCULT BLOOD URINE NEGATIVE (NEGATIVE); PROTEIN URINE 2+ (NEGATIVE); SPECIFIC GRAVITY URINE 1.014 (1.005-1.030); UROBILINOGEN URINE 0.2 E.U./dL (0.2-1.0)
[2018-06-09 20:51] LABS: *AMPHETAMINES SCREEN URINE NEGATIVE (NEGATIVE); *BARBITURATES SCREEN URINE NEGATIVE (NEGATIVE); *BENZODIAZEPINES SCREEN URINE NEGATIVE (NEGATIVE); *COCAINE SCREEN URINE NEGATIVE (NEGATIVE); CANNABINOID URINE SCREEN NEGATIVE (NEGATIVE); METHADONE URINE SCREEN NEGATIVE (NEGATIVE)
[2018-06-09 20:52] LABS: OPIATES URINE SCREEN NEGATIVE (NEGATIVE); PHENCYCLIDINE URINE SCREEN PRESUMTIVE POSITIVE (NEGATIVE)
[2018-06-09] MEDS ORDERED: IOHEXOL-350 100 ML BOTTLE ONE (21:13)
[2018-06-09 21:33] LABS: CHLORIDE 106 mEq/L (98-107)
[2018-06-09 21:35] LABS: PARTIAL THROMBOPLASTIN TIME 28.2 sec (23.4-31.0); PROTHROMBIN TIME 10.5 sec (9.1-11.1)
[2018-06-09 21:37] LABS: ETHANOL BLOOD < 10 mg/dL; HEMATOCRIT. 28.9 % (42.0-52.0); HEMOGLOBIN. 8.4 g/dL (14.0-18.0); MEAN CORPUSCULAR HEMOGLOBIN 18.6 pg (28.0-32.0); MEAN CORPUSCULAR VOLUME 63.7 fL (80.0-94.0); MEAN PLATELET VOLUME 8.5 fl (7.4-10.4); PLATELET 320 x1000/uL (130-400); RED BLOOD CELL COUNT 4.53 mill/uL (4.7-6.1); RED CELL DISTRIBUTION WIDTH 28.1 % (11.6-14.6)
[2018-06-09 22:14] LABS: PLATELET ESTIMATE NORMAL
[2018-06-09] MEDS ORDERED: MAGNESIUM/ALUMINUM HYDROXIDE/SIMETHICONE 30ML UDC PO PRN (22:45)
[2018-06-09] MEDS ORDERED: DOCUSATE SODIUM 100MG CAPSULE PO PRN (22:45)
[2018-06-09] MEDS ORDERED: IPRATROPIUM/ALBUTEROL 0.5-3(2.5)MG/3ML NEB INH PRN (22:45)
[2018-06-09] MEDS ORDERED: HYDROCODONE/ACETAMINOPHEN 5/325MG TABLET PO PRN (22:45)
[2018-06-09] MEDS ORDERED: CLONIDINE 0.1MG TABLET PO PRN (22:45)
[2018-06-09] MEDS ORDERED: ACETAMINOPHEN 325MG TABLET PO PRN (22:45)
[2018-06-09] MEDS ORDERED: ONDANSETRON HCL 4MG/2ML INJ IV PRN (22:45)
[2018-06-09] MEDS ORDERED: ASPIRIN 325MG EC TABLET PO ONE (22:45)
[2018-06-09] MEDS ORDERED: ENOXAPARIN 40MG/0.4ML SYR SUBCUT SCH (22:45)
[2018-06-10 00:27] LABS: CHLORIDE 108 mEq/L (98-107)
[2018-06-10 04:43] LABS: LDL CHOLESTEROL 90 mg/dL (5-100)
[2018-06-10 04:45] LABS: CREATINE KINASE 226 IU/L (39-308); HDL CHOLESTEROL 56 mg/dL (40-59)
[2018-06-10 04:47] LABS: CREATINE KINASE MB FRACTION 2.9 ng/mL (0.5-3.6)
[2018-06-10 05:23] LABS: HEMATOCRIT. 27.1 % (42.0-52.0); HEMOGLOBIN. 7.9 g/dL (14.0-18.0); MEAN CORPUSCULAR HEMOGLOBIN 18.4 pg (28.0-32.0); MEAN PLATELET VOLUME 9.1 fl (7.4-10.4); PLATELET 335 x1000/uL (130-400); RED BLOOD CELL COUNT 4.31 mill/uL (4.7-6.1); RED CELL DISTRIBUTION WIDTH 28.1 % (11.6-14.6)
[2018-06-10 09:50] VITALS: BP 125/77
[2018-06-10 10:00] VITALS: BP 125/77
[2018-06-10 10:16] LABS: PLATELET ESTIMATE NORMAL
[2018-06-10] MEDS: ENOXAPARIN 40MG/0.4ML SYR SUBCUT SCH (10:26)
[2018-06-10] MEDS: ASPIRIN 81MG EC TABLET PO SCH (10:26)
[2018-06-10] MEDS ORDERED: INFLUENZA VIRUS VACCINE(AFLURIA) 0.5ML SYR IM ONE (11:30)
[2018-06-10 12:00] VITALS: BP 114/75
[2018-06-10 15:40] LABS: CREATINE KINASE 202 IU/L (39-308)
[2018-06-10 15:41] LABS: CREATINE KINASE MB FRACTION 2.7 ng/mL (0.5-3.6)
[2018-06-10 17:00] LABS: VITAMIN B12 SERUM 456 pg/mL (211-911)
[2018-06-10 17:09] LABS: FOLIC ACID (FOLATE) SERUM > 20.00 ng/mL (>5.38)
[2018-06-10 20:00] VITALS: BP 130/80
[2018-06-10] MEDS ORDERED: PREGABALIN 25MG CAPSULE PO SCH (21:00)
[2018-06-10] MEDS: AMLODIPINE 5MG TABLET PO SCH (21:31)
[2018-06-10] MEDS: TAMSULOSIN HCL 0.4MG SR CAPSULE PO SCH (21:31)
[2018-06-11] VITALS: BP 163/81
[2018-06-11 04:00] VITALS: BP 129/56
[2018-06-11 08:44] VITALS: BP 118/69
[2018-06-11] MEDS: ASPIRIN 81MG EC TABLET PO SCH (08:49)
[2018-06-11] MEDS: TAMSULOSIN HCL 0.4MG SR CAPSULE PO SCH (08:49)
[2018-06-11] MEDS: AMLODIPINE 5MG TABLET PO SCH (08:50)
[2018-06-11] MEDS: ENOXAPARIN 40MG/0.4ML SYR SUBCUT SCH (08:51)
[2018-06-11] MEDS: PREGABALIN 50 MG CAPSULE PO SCH ×2 (08:51→20:21)
[2018-06-11 08:59] LABS: HEMATOCRIT. 25.9 % (42.0-52.0); HEMOGLOBIN. 7.5 g/dL (14.0-18.0); MEAN CORPUSCULAR HEMOGLOBIN 18.3 pg (28.0-32.0); MEAN CORPUSCULAR VOLUME 63.1 fL (80.0-94.0); MEAN PLATELET VOLUME 8.8 fl (7.4-10.4); PLATELET 320 x1000/uL (130-400); RED CELL DISTRIBUTION WIDTH 28.2 % (11.6-14.6)
[2018-06-11 09:25] LABS: CHLORIDE 111 mEq/L (98-107)
[2018-06-11 09:43] LABS: TOTAL IRON BINDING CAPACITY 383 ug/dL (250-450)
[2018-06-11 12:35] LABS: PLATELET ESTIMATE NORMAL
[2018-06-11 20:00] VITALS: BP 115/75
[2018-06-12] VITALS: BP 112/69
[2018-06-12 04:00] VITALS: BP 107/62
[2018-06-12 07:14] LABS: BASOPHILS % 1.2 % (0.0-2.0); EOSINOPHILS % 6.6 % (0.0-5.0); HEMATOCRIT. 27.3 % (42.0-52.0); HEMOGLOBIN. 7.8 g/dL (14.0-18.0); LYMPHOCYTES % 11.3 % (20.0-50.0); MEAN CORPUSCULAR HEMOGLOBIN 18.4 pg (28.0-32.0); MEAN CORPUSCULAR VOLUME 64.1 fL (80.0-94.0); MEAN PLATELET VOLUME 8.7 fl (7.4-10.4); MONOCYTES % 13.6 % (2.0-8.0); NEUTROPHILS % 67.3 % (40.0-76.0); PLATELET 319 x1000/uL (130-400); RED BLOOD CELL COUNT 4.26 mill/uL (4.7-6.1); RED CELL DISTRIBUTION WIDTH 28.3 % (11.6-14.6)
[2018-06-12 07:46] LABS: CHLORIDE 108 mEq/L (98-107)
[2018-06-12 08:47] VITALS: BP 116/74
[2018-06-12] MEDS: PREGABALIN 50 MG CAPSULE PO SCH (09:23)
[2018-06-12] MEDS: AMLODIPINE 5MG TABLET PO SCH (09:23)
[2018-06-12] MEDS: ASPIRIN 81MG EC TABLET PO SCH (09:23)
[2018-06-12] MEDS: TAMSULOSIN HCL 0.4MG SR CAPSULE PO SCH (09:23)
[2018-06-12] MEDS: ENOXAPARIN 40MG/0.4ML SYR SUBCUT SCH (09:24)
[2018-06-12 12:39] VITALS: BP 114/63
[2018-06-12 12:55] VITALS: BP 114/63
[2018-06-12 13:27] LABS: PLATELET ESTIMATE NORMAL
== END 2018-06-12 16:35 | disposition home or self-care (01) | DRG 563 ==
LOC: ER 19:27 → 8WST 22:37 → ENRESERV 06-10 08:13
PROVIDERS: ADMIT Internal Medicine; ATTEND Internal Medicine
DX: S43.491A Other sprain of right shoulder joint, initial encounter (principal); I16.1 Hypertensive emergency; I10 Essential (primary) hypertension; D50.9 Iron deficiency anemia, unspecified; I25.10 Atherosclerotic heart disease of native coronary artery without angina pectoris; F17.210 Nicotine dependence, cigarettes, uncomplicated; M48.02 Spinal stenosis, cervical region; Z86.73 Personal history of transient ischemic attack (TIA), and cerebral infarction without residual deficits; F16.90 Hallucinogen use, unspecified, uncomplicated; I65.23 Occlusion and stenosis of bilateral carotid arteries; R82.71 Bacteriuria; J43.9 Emphysema, unspecified; Z88.0 Allergy status to penicillin; Z79.899 Other long term (current) drug therapy; X58.XXXA Exposure to other specified factors, initial encounter; Y93.89 Activity, other specified; Y92.89 Other specified places as the place of occurrence of the external cause; Y99.8 Other external cause status
CPT/HCPCS: 36415; 70496; 70498; 70551; 71045; 72141; 73221; 80048; 80061; 80305; 80320; 82140; 82550; 82553; 82607; 82728; 82746; 82962; 83036; 83540; 83550; 83735; 84439; 84443; 84481; 84484; 90686; 93005; 93306; 93970; 96374; 96375; 97162; 97166; 99285; J0360; J1650; Q9967; G0480